=== PATIENT | female | born 2000 | race Two or more races ===

== ENCOUNTER 2018-11-19 14:38 | Emergency (ER) | payer MEDICAID, OTHER ==
[~2018-11-19] VITALS: Ht 154.9 cm; Wt 54.4 kg
[2018-11-19 16:48] VITALS: BP 118/73
[2018-11-19 20:01] LABS: Urine WBC None Seen /hpf (0 - 5)
[2018-11-19 20:20] LABS: Urine Bacteria NONE SEEN /hpf (None Seen); Urine Blood Negative /uL (Negative); Urine Specific Gravity 1.019 (1.001-1.035)
== END 2018-11-19 18:50 | disposition home or self-care (01) ==
LOC: ER 14:38
DX: S29.011A Strain of muscle and tendon of front wall of thorax, initial encounter (principal); S96.912A Strain of unspecified muscle and tendon at ankle and foot level, left foot, initial encounter; S16.1XXA Strain of muscle, fascia and tendon at neck level, initial encounter; V43.52XA Car driver injured in collision with other type car in traffic accident, initial encounter; Y93.89 Activity, other specified; Y99.8 Other external cause status; Y92.410 Unspecified street and highway as the place of occurrence of the external cause
CPT/HCPCS: 72040; 73030; 73620; 81001; 81025

== ENCOUNTER 2020-03-15 17:09 | Emergency (ER) | payer MEDICAID ==
[~2020-03-15] VITALS: Ht 157.5 cm; Wt 55.3 kg
[2020-03-15 17:16] VITALS: BP 123/71
== END 2020-03-15 20:27 | disposition home or self-care (01) ==
LOC: ER 17:09 → EDBD 17:09 → ER 20:27
DX: S91.312A Laceration without foreign body, left foot, initial encounter (principal); W25.XXXA Contact with sharp glass, initial encounter; Y93.89 Activity, other specified; Y92.89 Other specified places as the place of occurrence of the external cause; Y99.8 Other external cause status
CPT/HCPCS: 12002; 73630

== ENCOUNTER 2021-01-09 14:15 | Emergency (ER) | payer MEDICAID ==
[~2021-01-09] VITALS: Ht 157.5 cm; Wt 53.1 kg
[2021-01-09 15:06] VITALS: BP 106/65
[2021-01-09] MEDS ORDERED: METHOCARBAMOL 500 MG TAB PO ONE (15:30)
[2021-01-09] MEDS ORDERED: KETOROLAC TROMETH 60MG/2ML VIAL IM ONE (15:30)
== END 2021-01-09 15:53 | disposition home or self-care (01) ==
LOC: ER 14:15
DX: M43.6 Torticollis (principal)
CPT/HCPCS: 96372; 99283; J1885